=== PATIENT | male | born 1975 | race Caucasian/White ===

== ENCOUNTER 2021-11-07 20:32 | Emergency (ER) | payer SELFPAY ==
[~2021-11-07] VITALS: Ht 180.3 cm; Wt 91.0 kg
[2021-11-07] MEDS ORDERED: CLEOCIN300 MG PO (22:13)
[2021-11-07] MEDS ORDERED: ULTRAM50 MG PO (22:13)
[2021-11-07 22:28] VITALS: BP 156/84
== END 2021-11-07 22:40 | disposition home or self-care (01) | DRG 603 ==
LOC: ED 20:32
DX: L03.012 Cellulitis of left finger (principal); F17.210 Nicotine dependence, cigarettes, uncomplicated